=== PATIENT | female | born 1935 | race Caucasian/White ===

== ENCOUNTER 2016-08-01 08:17 | Inpatient (IN) ==
--- NOTE | 2016-07-31 21:31 | Discharge Summary ---
<Jonna Littlejohn - Last Filed: 07/31/16 21:28> Date of Encounter: 07/31/16 - Discharge Diagnosis (1) Rotator cuff tear arthropathy of right shoulder Priority: Primary Status: Acute (2) GERD (gastroesophageal reflux disease) Priority: Secondary Status: Chronic Qualifiers: Esophagitis presence: esophagitis presence not specified Qualified Code(s) : K21.9 - Gastro-esophageal reflux disease without esophagitis (3) History of anesthesia complications Priority: Secondary Status: Chronic Qualifiers: Encounter type: initial encounter Qualified Code(s): T41.45XA - Adverse effect of unspecified anesthetic, initial encounter - Discharge Medications Home Medications: OxyCODONE Immed Rel [Roxicodone 5 MG] 5 - 10 mg PO Q6HR PRN #40 tablet 07/31/16 [Rx] Acetaminophen [Tylenol] 325 mg PO Q6HR PRN 08/01/16 [History] Ibuprofen [Motrin] 200 mg PO Q6HR PRN 08/01/16 [History] Omeprazole [PriLOSEC] 20 mg PO DAILY 08/01/16 [History] Allergies/Adverse Reactions: Allergies No Known Allergies Allergy (Verified 08/01/16 08:49) Primary care physician: Christian Bess CNP - Patient Status Disposition: Home, Self-Care Condition: Good - Discharge Instructions Follow Up With: Corby Cherry MD [Partnered Physician] - 08/29/16 4:45 pm Jonna Littlejohn, PAC [Physician Non Garment Sewing Machine Operator] - 08/09/16 2:30 pm Christian Bess BAR PILOT [Primary Care Provider] - 09/26/16 3:00 pm Kg Jain MD [Partnered Physician] - 08/30/16 12:15 pm Additional Instructions: Discharge Instructions: Total Shoulder Please call [facility] ([phone]), your Primary Care Physician, or report to the Emergency Room if you have any of the following symptoms: Nausea, vomiting, fever greater that 101.5, swelling, chest pain, shortness of breath, increased pain/redness/drainage/odor for your incision site, numbness/ tingling, or any other concerning symptoms. ACTIVITY: Keep your arm in the sling - you may remove it to get dressed or to shower - make sure to keep your arm cradled against you. Do not raise your arm away from your body. Do not use your arm to help with getting in or out of bed. No weight bearing permitted. Only perform those exercises given to you by your therapist. MEDICATIONS: Upon discharge resume your home medications. Take all the medications as prescribed. Take a stool softener if taking narcotic pain medications. Stool softeners are only effective if you drink enough fluids. Drink 6-8 glass of water or fluids a day, unless this is not allowed for another health problem. Despite using stool softeners, if you haven't had a bowel movement in 3 days, please switch to a gentle laxative. Gentle laxatives are sold over the counter. You should have a bowel movement within 24 hours, if not call the office. You will be discharged from the hospital with a prescription for pain medication. You are encouraged to decrease the use of narcotic pain medication as tolerated. Should you require a refill, please call the office. [facility] prescribes narcotic pain medication for only 4-6 weeks after surgery. If you require pain medication beyond this time period, you may be referred to your Primary Care Physician or to the Pain Clinic for further evaluation. Plan ahead for refills on pain medication as many narcotics either need to be picked up at the office or mailed. It is best to call 48-72 hours in advance of needing a prescription refill so you don't run out of medication. To help control the post-operative pain, you may take NSAIDs (Aleve,Advil, Motrin, ibuprofen, naprosyn) or Tylenol as prescribed on the bottle in addition to the pain medication. If your incision starts to drain, stop taking the NSAID and call the office @ [phone]. ANTICOAGULATION: Common symptoms of blood clot in the legs include: localized pain, swelling, calf tenderness, redness or discoloration of the skin. Blood clot in the lung symptoms include: shortness of breath, rapid pulse, sweating, and chest pain that worsens with deep breathing, coughing up blood, lightheadedness, and feelings of anxiety. If you experience any of these symptoms notify your physician immediately, go to the emergency room, or if having trouble breathing , call 911. WOUND CARE: Keep the dressing in place until your followup appointment. You may change the dressing if it becomes saturated greater than 50% - contact home health or the office for a dressing change. You can shower but not a tub bath or submerge your incision in water. Wash your hands with antibacterial soap, rinse and dry prior to any wound care. If you have nam the visiting nurse or rehab facility can remove the stapes 10-14 days after surgery and place steri -strips across the wound. Leave the steri-strips in place until they fall off on their won. You may let water from the shower run on top of the steri- stirips. If you do not have a visiting nurse or rehab facility, you will need to return to the office at 10-14 days for the nam to be removed. FOLLOW-UP: Please follow up with your surgeon in the orthopedic clinic, as scheduled - Hospital Course Hospital course: Ms. Pulido is a 81 year old female - Time Spent with Patient Total time spent providing and/or coordinating discharge services: <Corby Cherry - Last Filed: 08/02/16 08:06> Date of Encounter: 08/02/16 Time of Encounter: 08:06 - Discharge Diagnosis (1) Rotator cuff tear arthropathy of right shoulder Priority: Primary Status: Acute (2) GERD (gastroesophageal reflux disease) Priority: Secondary Status: Chronic Qualifiers: Esophagitis presence: esophagitis presence not specified Qualified Code(s) : K21.9 - Gastro-esophageal reflux disease without esophagitis (3) History of anesthesia complications Priority: Secondary Status: Chronic Qualifiers: Encounter type: initial encounter Qualified Code(s): T41.45XA - Adverse effect of unspecified anesthetic, initial encounter Primary care physician: Christian Bess CNP - Patient Status Functional capacity at discharge: independent ambulation Overall status at discharge: patient is progressing back to baseline - Hospital Course Hospital course: Ms. Pulido is a 81 year old female The patient had an uneventful postoperative course. They received antibiotics and physical therapy and were discharged in stable condition. There will follow -up in the office in 2 weeks. - Time Spent with Patient Total time spent providing and/or coordinating discharge services:
--- NOTE | 2016-08-01 08:31 | History & Physical Report ---
Date of Encounter: 08/01/16 Time of Encounter: 08:31 24 Hour HP Update - Instructions Instructions: If the History and Physical is less than 30 days old and was completed prior to A.M. admission and or procedure and has NOT been updated on calendar day of procedure please complete this update prior to performing procedure. - Update Patient reports changes in Medical Condition: No Changes in assessment/condition: No Changes in Medication: No Preop tests/diagnostics Reviewed: Yes Surgery Remains Indicated: Yes Consent for Planned Operative Procedure(s) Verified: Yes - Pre-Operative Checklist Preoperative Checklist Indicated: No Prophylactic Antibiotic Ordered: Yes Is VTE Prophylaxis Indicated?: Yes
[2016-08-01] MEDS ORDERED: Famotidine 20 MG/2 ML VIAL IVP ONE (08:48)
[2016-08-01] MEDS ORDERED: CeFAZolin Pre 2,000 MG/100 ML 2,000 MG/100 ML BAG IVPB ONE (08:55)
[2016-08-01] MEDS ORDERED: ROPIVACAINE HCL/PF 0.5% 30 ML VIAL ONE (08:58)
[2016-08-01] MEDS ORDERED: Bupivacaine/Clonidine Syringe 1 EACH SYRINGE ONE (08:59)
[2016-08-01] MEDS ORDERED: Ringers Solution, Lactated 1,000 ML IVC SCH ×2 (09:00→14:44)
--- NOTE | 2016-08-01 09:05 | Anesthesia Evaluation PreOp ---
Date of Encounter: 08/01/16 Time of Encounter: 09:00 - Past History Planned Operation: Rt Total Shoulder Replacement Cardiac History: Denies any Significant Hx Pulmonary History: Denies Any Significant HX PACKAGING LINE OPERATOR History: Denies Any Significant HX Other Medical History: GERD, Other (PUD) Anesthesia History: Past Anesthesia (Rt Shoulder Surgery), Problems (Post Op ICU ) : No Alcohol Use: none Drug use: none Medications and Allergies OxyCODONE Immed Rel [Roxicodone 5 MG] 5 - 10 mg PO Q6HR PRN #40 tablet 07/31/16 [Rx] Acetaminophen [Tylenol] 325 mg PO Q6HR PRN 08/01/16 [History] Ibuprofen [Motrin] 200 mg PO Q6HR PRN 08/01/16 [History] Omeprazole [PriLOSEC] 20 mg PO DAILY 08/01/16 [History] Allergies No Known Allergies Allergy (Verified 08/01/16 08:49) - Meds/Allergy Pre-op Review Medications Reviewed: Yes Allergies Reviewed: Yes Beta Blockers on Current Med List: No Anesthesia Results - Labs Laboratory Tests 07/17/16 07/17/16 15:16 15:16 Hgb 13.1 Hct 40.1 Plt Count 259 Sodium 141 Potassium 4.3 BUN 20 Creatinine 0.79 - Imaging EKG: pending Anesthesia Exam O2 Sat Height 1.52 m Height 1.52 m Weight 90.718 kg Weight 90.718 kg Height: 5'2 Weight: 200 lbs NPO (# of Hours): MN Pain Scale: 0 - HEENT Pupil (Motor): Pupils equal, EOMI Mallampati: III Denture Type: Upper: Complete Oral Opening: Less than or equal to 3 - PACKAGING LINE OPERATOR LOC: Oriented PACKAGING LINE OPERATOR Motor: Normal RUE, Normal LUE, Normal RLE, Normal LLE, Normal Face PACKAGING LINE OPERATOR Sensory: Normal: RUE, LUE, RLE, LLE, Face - Cardiac Rhythm: Regular Murmur: None JVD: No Carotid Bruit: No - Pulmonary Breath Sounds: bilateral Clear Respiratory Effort: Symmetrical Anesthesia Assess/Plan ASA Score: 2 Modified [place] Scale for Level of Consciousness: Cooperative, oriented, and tranquil Anesthetic Plan: General, Regional Monitoring Plan: Standard Monitors Recovery Plan: PACU (Discussed GA, agrees to proceed)
[2016-08-01] MEDS ORDERED: *HR* FentaNYL (PF) 100 MCG/2 ML VIAL ONE (09:14)
[2016-08-01] MEDS ORDERED: Lidocaine -MPF 2% 2 ML VIAL ONE (09:15)
[2016-08-01] MEDS ORDERED: *HR* Midazolam HCl 2 MG/2 ML VIAL ONE (09:15)
[2016-08-01] MEDS ORDERED: *HR* Propofol 200 MG/20 ML VIAL IVP ONE (09:15)
[2016-08-01] MEDS ORDERED: Tetracaine/PF 20 MG/2 ML AMPUL SPINA ONE (09:44)
--- NOTE | 2016-08-01 09:58 | Anesthesia Procedures ---
Date of Encounter: 08/01/16 Time of Encounter: 09:55 Procedures: Anesthesia - Nerve Block Procedure Date: 08/01/16 Time: 09:55 Allergies/Adv Reactions: Allergies No Known Allergies Allergy (Verified 08/01/16 08:49) Pre-op Diagnosis: right rotator cuff arthropathy Surgical Procedure: right shoulder reverse ball Checklist: Correct Patient Identifier, Correct procedure, History checked Correct side: Right Blood Thinner: No Monitor Applied: EKG, BP, Pulse Oximetry Supplemental Oxygen via Nasal Cannula (L/min): 2 Sedation: Versed (mg): 2 Sedation: Fentanyl (mcg): 100 Indication: Post Op Analgesia Pre-op Neuro Deficits: No Block Type: Supraclavicular Catheter placed: No Sterile Technique: Yes Ultrasound used: Yes Anatomy identified: Yes Visual spread of Local: Yes Neuro Stimulation: No Blood on Needle Aspiration: No Smooth Injection of Local: Yes Pain with Injection of Local: No Prep: Chlorhexadine Needle: 22 x 50 mm Stimuplex Local: Other Volume (cc): 30 Number of Attempts: 1 Complications: None/effective block Vitals: Vital Signs/O2 Sat, Most Current Temp Pulse Resp BP Pulse Ox 98.1 F 84 18 127/76 100 08/01/16 09:08 08/01/16 09:33 08/01/16 09:33 08/01/16 09:33 08/01/16 09:33
[2016-08-01] MEDS ORDERED: *HR* Succinylcholine 200 MG/10 ML VIAL IVP ONE (10:01)
[2016-08-01] MEDS ORDERED: Lidocaine -MPF 4% 5 ML AMPUL ONE (10:02)
[2016-08-01] MEDS ORDERED: Ondansetron 4 MG/2 ML VIAL ONE (10:12)
[2016-08-01] MEDS ORDERED: Dexamethasone 4 MG/ML VIAL ONE (10:12)
[2016-08-01] MEDS ORDERED: *HR* Promethazine 25 MG/ML VIAL IVP PRN (10:27)
--- NOTE | 2016-08-01 10:50 | Orthopedic Operative Note ---
Date of procedure: 08/01/16 Pre-op diagnosis: Right shoulder cuff tear arthropathy Post-op diagnosis: same Procedure: Procedure: Right Total Shoulder Replacment Reverse, removal of hardware shoulder Estimated blood loss: 100 cc Hardware:Arthrex medium glenoid baseplate, 2 4.5 screws. 1 6.5 screw, 39 lateral glenosphere, 6 humeral stem, poly insert 6 Exam Under anesthesia: Full motion no instability Procedural Notes: Grade 4 arthritic changes humeral head irreparable tear rotator cuff Operative procedure: The patient was brought to the operating room and placed on the operating room table. After general anesthesia was administered the operative shoulder was examined. Findings were noted. The patient was placed in the modified beachchair position. All pressure points were padded appropriately. And the head was stabilized in the neutral position. The operative extremity was prepped and draped in the sterile surgical fashion. The patient received IV antibiotics prior to skin incision. A standard deltopectoral approach was made to the operative shoulder. Incision was made to the skin and subcutaneous tissue,hemo stasis was obtained with Bovie cautery. Using careful blunt dissection the cephalic vein was identified and mobilized medially. The deltopectoral interval was developed and the clavipectoral fascia was incised. The subscap was released off the lesser tuberosity and tagged with #2 FiberWire suture. The humerus was dislocated patient noted to have irreparable tear supraspinatus tendon also noted to have grade 4 arthritic changes humeral head, and the humeral cut was made along the anatomic neck. Anterior and posterior Bankart retractors were placed to expose the glenoid. The glenoid guide was seated and the centering hole was made. It was reamed with the appropriate medium reamer. The medium baseplate was seated and secured with (2) 4.5 screws and one 6.5 screw. The baseplate was irrigated and dried and the 39 lateral Glenosphere was seated and secured with the Casper taper. The Casper taper was tested and found to be secure the humerus was redislocated and prepared with the diaphyseal reamers, metal anchor was removed from the metaphysis with a rongeur. This was followed by a broaching process up to the appropriate size 6 in the patient's anatomic version. The metaphyseal reamer was then utilized. Trial reduction found the shoulder to be relocatable. Trial components were removed and drill holes were placed in the lesser tuberosity. They were filled with #5 FiberWire suture. These sutures were used for a subscap repair and a biceps tenodesis. The appropriate 6 stem was impacted in place in the patient's anatomic version. Trial reduction found the shoulder to be relocatable and stable with the appropriate 6 Trial component was removed and the real was seated and secured the shoulder was reduced. The shoulder had excellent motion and excellent stability and no evidence of dislocation. The deep tissue was irrigated with pulse irrigation. The subscap was repaired. The deltopectoral interval was closed with a running #1 PDS suture, subcutaneous tissue was irrigated and closed with 0 PDS suture, the skin was closed with Dermabond. The patient was placed in a sterile dressing, abduction brace and extubated. The patient was then transferred to the recovery room in stable condition. Anesthesia: NADEEM Surgeon: Corby Cherry Burnisher And Bumper: Jonna Littlejohn Condition: stable Disposition: PACU
[2016-08-01 11:57] LABS: Hematocrit 37.9 % (35.3-44.9); Hemoglobin 12.1 g/dL (11.5-15.4)
--- NOTE | 2016-08-01 12:35 | Anesthesia Evaluation Post Op ---
Date of Encounter: 08/01/16 Time of Encounter: 12:00 - Vital Signs Vital Signs: Vital Signs/O2 Sat/Glucose, Most Current Temp Pulse Resp BP Pulse Ox 08/01/16 11:42 97.2 F L 83 16 141/76 95 08/01/16 11:32 97.4 F L 81 16 143/75 94 L 08/01/16 11:22 80 16 126/72 96 08/01/16 11:12 80 16 121/62 99 08/01/16 11:02 97.3 F L 86 16 122/68 99 08/01/16 09:33 84 18 127/76 100 08/01/16 09:08 98.1 F 86 18 124/69 92 L - Lungs Lungs: Clear Ascult./Percussion - Airway Airway: Non-obstructed - Cardiovascular Regular Rate - Mental Status Mental Status: Alert & Oriented, Answers Appropriately - Pain Pain Scale: 1 - Nausea Vomiting Nausea Vomiting: Not Present - Hydration Hydration: Ice chips - Discharge PostOp Status: Transfer Patient to floor
[2016-08-01] MEDS ORDERED: *HR* OxyCODONE Immed Rel 5 MG TABLET PO PRN (14:44)
[2016-08-01] MEDS ORDERED: Sennosides 8.6 MG TABLET PO PRN (14:44)
[2016-08-01] MEDS ORDERED: Ibuprofen 200 MG TABLET PO PRN (14:44)
[2016-08-01] MEDS ORDERED: Ipratropium/Albuterol Neb 3 ML IH ONE (14:44)
[2016-08-01] MEDS ORDERED: Ondansetron 4 MG/2 ML VIAL IVP PRN (14:44)
[2016-08-01] MEDS ORDERED: *HR* HYDROmorphone (PF) 1 MG/ML SYRINGE IVP PRN (14:44)
[2016-08-01] MEDS ORDERED: MOM Conc 10 ML UD.LIQ PO PRN (14:44)
[2016-08-01] MEDS ORDERED: Naloxone 0.4 MG/ML INJ IVP PRN (14:44)
[2016-08-01] MEDS ORDERED: Acetaminophen 325 MG TABLET PO PRN ×2 (14:44)
[2016-08-01] MEDS ORDERED: Temazepam 15 MG CAPSULE PO PRN (14:44)
[2016-08-01] MEDS: *HR* OxyCODONE Immed Rel 5 MG TABLET PO PRN (15:11)
[2016-08-01] MEDS: *HR* Enoxaparin 30 MG/0.3 ML SYRINGE SQ SCH (16:54)
[2016-08-01] MEDS ORDERED: *HR* Enoxaparin 30 MG/0.3 ML SYRINGE SQ SCH (18:00)
[2016-08-01] MEDS: ceFAZolin 2,000 MG in D5% in Water 100 ML IVPB SCH (18:48)
[2016-08-02] MEDS: ceFAZolin 2,000 MG in D5% in Water 100 ML IVPB SCH (01:01)
[2016-08-02] MEDS: *HR* OxyCODONE Immed Rel 5 MG TABLET PO PRN ×2 (03:48→09:03)
[2016-08-02] MEDS: *HR* Enoxaparin 30 MG/0.3 ML SYRINGE SQ SCH (03:49)
[2016-08-02 05:02] LABS: Hematocrit 38.9 % (35.3-44.9); Hemoglobin 12.6 g/dL (11.5-15.4)
--- NOTE | 2016-08-02 06:39 | Electrocardiograph Report ---
[place] [employer] Test Date: 2016-08-01 Pat Name: Carlyn Pulido Department: 106 Room: [facility] Gender: F Transportation Aide: : 1935 Requested By: Artemio Mcghee Order Number: [id number] Reading MD: Twan Sanchez DO Measurements Intervals [place] Rate: 84 P: 33 FL: 232 QRS: -22 QRSD: 86 T: 6 QT: 378 QTc: 420 Interpretive Statements SINUS RHYTHM WITH FIRST DEGREE AV BLOCK POSSIBLE ANTERIOR MYOCARDIAL INFARCTION, PROBABLY OLD Electronically Signed On 08-02-2016 6:37:42 EST by Twan Sanchez DO
[2016-08-02 06:52] VITALS: BP 113/74
--- NOTE | 2016-08-02 08:07 | Orthopedics Progress Note ---
Date of Encounter: 08/02/16 Time of Encounter: 08:07 - Assessment and Plan (1) Rotator cuff tear arthropathy of right shoulder Current Visit: Yes Status: Acute (2) GERD (gastroesophageal reflux disease) Current Visit: Yes Status: Chronic Qualifiers: Esophagitis presence: esophagitis presence not specified Qualified Code(s) : K21.9 - Gastro-esophageal reflux disease without esophagitis (3) History of anesthesia complications Current Visit: Yes Status: Chronic Qualifiers: Encounter type: initial encounter Qualified Code(s): T41.45XA - Adverse effect of unspecified anesthetic, initial encounter Subjective Interval history: Patient was seen this morning doing well without complaints. Afebrile vital signs stable. Operative extremity: Neurovascularly intact Dressing clean dry and intact Calves nontender Assessment and plan: Continue with postoperative care Hematocrit 38 discharged today Objective Vital signs: Vital Signs Temp Pulse Resp BP Pulse Ox 08/02/16 06:38 98.4 F 80 16 113/74 93 L 08/02/16 04:00 97.7 F 89 17 144/82 94 L 08/02/16 00:00 97.4 F L 88 17 134/81 94 L 08/01/16 20:00 97.5 F L 89 16 121/79 92 L 08/01/16 16:08 97.7 F 95 18 125/81 94 L 08/01/16 14:00 97.7 F 90 18 128/77 94 L 08/01/16 13:25 97.5 F L 87 16 128/77 94 L 08/01/16 12:26 95.5 F L 78 16 145/81 92 L 08/01/16 12:00 97.5 F L 85 15 120/77 92 L 08/01/16 11:42 97.2 F L 83 16 141/76 95 08/01/16 11:32 97.4 F L 81 16 143/75 94 L 08/01/16 11:22 80 16 126/72 96 08/01/16 11:12 80 16 121/62 99 08/01/16 11:02 97.3 F L 86 16 122/68 99 08/01/16 09:33 84 18 127/76 100 08/01/16 09:08 98.1 F 86 18 124/69 92 L Intake and Output 08/01/16 08/02/16 08/02/16 23:59 07:59 15:59 Intake Total 750 / 750 250 / 250 Output Total 300 / 300 Balance 450 / 450 250 / 250 Intake: IV Fluids 100 / 100 Ancef 2,000 MG In 100 / 100 Dextrose 5% 100 ML @ 200 mls/hr IVPB Q8H LAST Rx#: [id number] Oral 650 / 650 250 / 250 Output: Urine 300 / 300 Other: # Voids 2 1 2 - Labs CBC & BMP: 08/02/16 04:47 - VTE Documentation of Mechanical Device: Venous foot pump, device Consult Discharge Plan - Plan Additional Instructions: Discharge Instructions: Total Shoulder Please call [facility] ([phone]), your Primary Care Physician, or report to the Emergency Room if you have any of the following symptoms: Nausea, vomiting, fever greater that 101.5, swelling, chest pain, shortness of breath, increased pain/redness/drainage/odor for your incision site, numbness/ tingling, or any other concerning symptoms. ACTIVITY: Keep your arm in the sling - you may remove it to get dressed or to shower - make sure to keep your arm cradled against you. Do not raise your arm away from your body. Do not use your arm to help with getting in or out of bed. No weight bearing permitted. Only perform those exercises given to you by your therapist. MEDICATIONS: Upon discharge resume your home medications. Take all the medications as prescribed. Take a stool softener if taking narcotic pain medications. Stool softeners are only effective if you drink enough fluids. Drink 6-8 glass of water or fluids a day, unless this is not allowed for another health problem. Despite using stool softeners, if you haven't had a bowel movement in 3 days, please switch to a gentle laxative. Gentle laxatives are sold over the counter. You should have a bowel movement within 24 hours, if not call the office. You will be discharged from the hospital with a prescription for pain medication. You are encouraged to decrease the use of narcotic pain medication as tolerated. Should you require a refill, please call the office. [facility] prescribes narcotic pain medication for only 4-6 weeks after surgery. If you require pain medication beyond this time period, you may be referred to your Primary Care Physician or to the Pain Clinic for further evaluation. Plan ahead for refills on pain medication as many narcotics either need to be picked up at the office or mailed. It is best to call 48-72 hours in advance of needing a prescription refill so you don't run out of medication. To help control the post-operative pain, you may take NSAIDs (Aleve,Advil, Motrin, ibuprofen, naprosyn) or Tylenol as prescribed on the bottle in addition to the pain medication. If your incision starts to drain, stop taking the NSAID and call the office @ [phone]. ANTICOAGULATION: Common symptoms of blood clot in the legs include: localized pain, swelling, calf tenderness, redness or discoloration of the skin. Blood clot in the lung symptoms include: shortness of breath, rapid pulse, sweating, and chest pain that worsens with deep breathing, coughing up blood, lightheadedness, and feelings of anxiety. If you experience any of these symptoms notify your physician immediately, go to the emergency room, or if having trouble breathing , call 911. WOUND CARE: Keep the dressing in place until your followup appointment. You may change the dressing if it becomes saturated greater than 50% - contact home health or the office for a dressing change. You can shower but not a tub bath or submerge your incision in water. Wash your hands with antibacterial soap, rinse and dry prior to any wound care. If you have nam the visiting nurse or rehab facility can remove the stapes 10-14 days after surgery [address] steri -strips across the wound. Leave the steri-strips in place until they fall off on their won. You may let water from the shower run on top of the steri- stirips. If you do not have a visiting nurse or rehab facility, you will need to return to the office at 10-14 days for the nam to be removed. FOLLOW-UP: Please follow up with your surgeon in the orthopedic clinic, as scheduled Referrals: Corby Cherry MD [Partnered Physician] - 08/29/16 4:45 pm Jonna Littlejohn PAC [Physician Boring Inspector] - 08/09/16 2:30 pm Christian Bess, JOSEFINA [Primary Care Provider] - 09/26/16 3:00 pm Kg Jain MD [Partnered Physician] - 08/30/16 12:15 pm
== END 2016-08-02 09:40 | disposition home health service (06) | DRG 483 ==
LOC: SAMDAY 08:17 → 3NENU 12:09
PROVIDERS: ADMIT Orthopaedic Surgery; ATTEND Orthopaedic Surgery